=== PATIENT | female | born 1990 | race Caucasian/White ===

== ENCOUNTER → 2023-01-18 16:39 | Outpatient (CLI) | payer OTHER, SELFPAY ==
--- NOTE | 2023-01-18 | DI.MRI.S_ITS ---
PROCEDURE: MR FOOT RT WO/W CON INDICATIONS: MASS ON FOOT - 5th toe TECHNIQUE: Noncontrast sagittal T1 spin echo and T2 fast spin echo with fat saturation, long-axis T1 spin echo and T2 fast spin echo with fat saturation; short-axis T1 spin echo, proton density fast spin echo, and T2 fast spin echo with fat saturation through the forefoot. Post-contrast short axis, long axis, and sagittal T1 spin echo with fat saturation through the forefoot. COMPARISON: [facility], CR, XR FOOT 3+ VIEWS RIGHT, 11/11/2022, 17:36. FINDINGS: Image quality: Excellent. Bones and joints: No suspicious osseous enhancement. No bone marrow contusions or metatarsal stress fractures. The sesamoid bones appear in expected positions, without internal edema. No metatarsophalangeal joint degeneration. No intraosseous lesions. Soft tissues: Very subtle area of T2 hyperintense signal and T1 hypointense signal involving soft tissue lateral to the 5th proximal phalangeal head is seen measures up to 4 x 3 mm in size and show mild contrast enhancement in this area. No adjacent cortical erosion or periosteal reaction is seen. No other soft tissue mass or fluid collection is noted. The visualized plantar foot muscles demonstrate normal signal and bulk. Visualized flexor and extensor tendons appear intact, without tenosynovitis. The distal insertions of the peroneus brevis and longus tendons appear intact. The principal Lisfranc ligament appears intact. IMPRESSION: 1. Tiny 4 x 3 mm area of signal abnormality involving soft tissue over lateral aspect of 5th proximal phalangeal head and show faint heterogeneous contrast enhancement concerning for small soft tissue neoplasm of indeterminate nature. No other enhancing soft tissue mass or drainable fluid collection is seen. 2. No marrow edema. No abnormal intraosseous enhancement. No fracture or dislocation. No periosteal reaction or cortical erosion is seen . Dictated by: Je Jenkins M.D. on 01/19/2023 at 11:46 Approved by: Je Jenkins M.D. on 01/19/2023 at 11:58
== END ==
PROVIDERS: Referring Provider Podiatrist; Visit Provider Podiatrist
DX: R22.41 Localized swelling, mass and lump, right lower limb (principal)
CPT/HCPCS: 73720; A9579